=== PATIENT | male | born 1985 | race Caucasian/White ===

== ENCOUNTER 2017-02-26 14:10 | Emergency (ER) | payer OTHER ==
[~2017-02-26] VITALS: Ht 177.8 cm; Wt 87.8 kg
[2017-02-26 16:00] VITALS: BP 150/79
[2017-02-26] MEDS ORDERED: TRAMADOL HCL50 MG PO (16:05)
== END 2017-02-26 16:14 | disposition home or self-care (01) ==
LOC: EME 14:10
PROC: 0HQGXZZ Repair Left Hand Skin, External Approach (ICD-10-PCS; principal; 2017-02-26)
DX: S61.012A Laceration without foreign body of left thumb without damage to nail, initial encounter (principal); W26.0XXA Contact with knife, initial encounter
CPT/HCPCS: 99281; 99283